=== PATIENT | male | born 1965 | race Caucasian/White ===

== ENCOUNTER 2022-04-25 05:12 | Observation (INO) ==
--- NOTE | 2022-04-05 11:59 | History & Physical Report ---
Date of Service April 05, 2022 date of surgery: 04/25/22 Procedure: Left Total Knee Arthroplasty Surgeon: Sung Bryan Assessment & Plan (1) Arthritis of knee, left: Plan: At this point time patient has failed conservative measures and like to seed with surgical invention. Plan will be left total knee arthroplasty. Plan on discharge home with home health physical therapy, placed on aspirin 81 mg twice a day for 1 month postop DVT prophylaxis. He otherwise has no other questions or concerns The risks and benefits have been discussed including, but not limited to, risk of infection, nerve injury, stiffness, loss of motion, failure to improve, etc. Reasonable outcomes and options of treatment were discussed. An explanation of appropriate alternatives to the procedure that may be advantageous were discussed and their risks and benefits, as well as the risks and benefits of not proceeding with treatment. I offered to answer any additional inquiries concerning the treatment involved. All the patient's questions were answered. The patient is agreeable, understanding of the treatment plan and alternatives, and wishes to proceed with the treatment plan. History of Present Illness Chief Complaint: left knee pain Primary Care Provider: NO PCP Mehran is a pleasant 56-year-old male who presented for preoperative evaluation prior to his left total knee replacement. He states that he has had pain in his knee for many years now which is gradually worsened, is now affecting his daily activities. He has tried prior corticosteroid injection as well as viscosupplementation without relief. States he has tried oral anti- inflammatories and Tylenol as well. Has complaints of pain and swelling and giving out. This point time is failed conservative measures and like to proceed with a left total knee replacement Review of Systems Review of Systems: All systems reviewed & are unremarkable except as noted in HPI & below Constitutional: no fever, no chills and no sweats Respiratory: no cough and no dyspnea Cardiovascular: no chest pain, no dyspnea and no orthopnea Gastrointestinal: no abdominal pain, no nausea and no vomiting Musculoskeletal: as per Subjective / HPI Physical Exam Constitutional: WD/WN, vitals as above no acute distress Respiratory: normal respiratory effort, lungs clear to auscultation no respiratory distress, no labored breathing and does not use accessory muscles Cardiovascular: RRR, no murmur, no edema Gastrointestinal (Abdomen): normal bowel sounds, soft, nontender, no hepatosplenomegaly Musculoskeletal: Knee: + knee abnormal to inspection (LEFT KNEE), + effusion (+1 effusion), + limited ROM of knee (ROM 0/3/110), + knee ROM with crepitation, + joint line tenderness (medial joint line) and + Moon's sign positive; no deformity, no skin erythema, no ecchymosis, no valgus laxity, no varus laxity, anterior drawer test negative, Elvia's sign negative and pivot shift test negative Results & Data Results & Data ([facility]) Diagnostic Findings Left Knee X-ray: left knee series confirm advanced degenerative changes to the left knee, greatest medial compartments and patellofemoral joint, showing joint space narrowing, osteophyte formation and subchondral sclerosis. no acute bony pathology noted.
--- NOTE | 2022-04-19 15:55 | PAT Medication Instructions ---
Medication Instructions Date of Service April 19, 2022 Home Medications empagliflozin 25 mg tablet (Jardiance) 25 mg PO QAM folic acid 1 mg tablet 1 mg PO BID hydrochlorothiazide 100 mg tablet 250 mg PO QAM losartan 50 mg tablet 50 mg PO QAM naproxen 500 mg tablet 500 mg PO BID PRN zinc 50 mg tablet 50 mg PO QAM STOP 3 days before surgery empagliflozin 25 mg tablet (Jardiance) 25 mg PO QAM ASK your surgeon for instructions naproxen 500 mg tablet 500 mg PO BID PRN DO NOT take the morning of surgery folic acid 1 mg tablet 1 mg PO BID hydrochlorothiazide 100 mg tablet 250 mg PO QAM losartan 50 mg tablet 50 mg PO QAM zinc 50 mg tablet 50 mg PO QAM Take evening before surgery folic acid 1 mg tablet 1 mg PO BID Other Notes NOTHING TO EAT OR DRINK AFTER MIDNIGHT. If you have any questions please call us at [phone] or [phone] or or [phone]
--- NOTE | 2022-04-21 12:53 | Anesthesiology Consultation ---
Date of Service April 21, 2022 Assessment & Plan (1) Encounter for pre-operative examination: - Outpatient joint pathway: Per OR booking comments, plan for outpatient joint program. Patient seen at [facility] 04/21. Patient is an acceptable candidate to proceed as possible outpatient joint pathway pending perioperative course. Surgeon's office arranging post-op home management. - Check BSG AM DOS - PCP office visit (03/15/22): "the patients most recent diagnostic testing was received with the patient and was acceptable. 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 his bp is up today and has been up for the last visits over 18 months. he claims that his bp at home is always normal.. BP 164/86.. he is cleared for this surgery.. it is noted that he has prediabetes and he admits to a heavy on the pasta diet. will start on a sglt inh after he calls with information regarding insurance coverage.. " Patient since started on Jardiance. HGBA1C 6.1% on 03/04/22. Pt states that surgery was originally scheduled with [facility] outpatient center but rescheduled at [facility] d/t BP control. Patient states he has since had BP meds adjusted and is well controlled/monitored closely at home. BP at [facility] 04/21/22 was 162/80 on initial check, 122/80 manual recheck. - COVID screening: Per assessment on 04/21: No known COVID-19 positive contacts. Travel screen negative. Patient had congestion/rhinorrhea 04/06/22 > resolved. Patient vaccinated. Covid test done at [facility] 04/21/22 d/t recent cold symptoms was negative. Chart Review Chart Review: Acceptable Risk for Surgery and Patient seen in Pre Admission Testing Teaching & Discussion Pre-Anesthesia Teaching/Discussion Notes: Instructed NPO after midnight before surgery,except medications with 15 cc of water. Medication instructions provided according to the [facility] guidelines. History Surgery Operation Date: 04/25/22 07:15 Proposed Procedures p Left Total Knee Arthroplasty - Sung Bryan DO Height/Weight Height: 5 ft 7 in Weight: 85.7 kg Allergies Allergy/AdvReac Type Severity Reaction Status Date / Time No Known Allergies Allergy Verified 04/19/22 15:02 Medications Home Medications Medication Instructions Recorded Confirmed Last Taken empagliflozin 25 mg tablet 25 mg PO QAM 04/19/22 04/19/22 Unknown (Jardiance) folic acid 1 mg tablet 1 mg PO BID 04/19/22 04/19/22 Unknown hydrochlorothiazide 100 mg tablet 250 mg PO QAM 04/19/22 04/19/22 Unknown losartan 50 mg tablet 50 mg PO QAM 04/19/22 04/19/22 Unknown naproxen 500 mg tablet 500 mg PO BID PRN Pain 04/19/22 04/19/22 Unknown zinc 50 mg tablet 50 mg PO QAM 04/19/22 04/19/22 Unknown Past Medical History Medical History (Updated 04/21/22 @ 14:47 by Nasreen Medina) Beta thalassemia, heterozygous Diabetes Erythrocytosis History of kidney stones HTN (hypertension) Exercise / Class Metabolic Activity II 4-5 Yardwork/Stairs/Walk up hill (one FS (no CP, no SOB)) Past Family History Family History Other No family history of adverse response to anesthesia Past Surgical History Surgical History History of lithotripsy History of surgery on arm Left x4 (from defect) Hx of arthroscopic knee surgery R/L Hx of arthroscopy of shoulder Hx of cataract extraction R/L Hx of colonoscopy Hx of eye surgery RK procedure Past Anesthesia History No Hx of Anesthesia Complications and No Family Hx of Anesthesia Complications History of PONV No Hx of PONV and No Hx of Motion Sickness Social History Smoking Status: Never smoker Do You Dip or Chew Tobacco: Yes (Advised none DOS) Hx Alcohol Use: Yes alcohol intake frequency: holidays/special occasions only Hx Substance Use: No substance use type: does not use Review of Systems Patient denies chest pain, shortness of breath, dyspnea on exertion, fever, chills, cough, wheezing, palpitations. Physical Exam Vital Signs VITALS BP 162/80 > 122/80 manual recheck P 73 TEMP 98.3 SP02 98%RA RESP 16 PHYSICAL Full cervical extension range of motion. Full TMJ range of motion. TMD 3.5 finger breaths Mallampati Score 3 Dentition: intact Lungs: clear throughout to auscultation Cardiac: regular rate and rhythm, no murmurs noted Spine: normal Carotid arteries: negative bruit Extremities: no edema Lab Results Anesthesia Preop Results Results Anesthesia Widget: Blood Type B Positive 04/21/22 Antibody Screen NEGATIVE 04/21/22 Testing Laboratory Results 03/04/22 WBC 6.23 H/H 14.0/45.5 PLATELETS 179 RBC morphology abnormal, 1+ anisocyte, 2+ microcyte, 1+ ovalocyte, WBC/platelet morphology normal SODIUM 140 POTASSIUM 3.7 CHLORIDE 107 CO2 29.0 BUN 20.0 CREATININE 0.87 GLUCOSE 163 HGBA1C 6.1% PT 12.0 PTT 34.1 INR 1.07 UA negative Electrocardiogram Date: 03/04/22 SR at 71bpm. "Normal ECG" Chest X-Ray Date: 04/21/22 FINDINGS: The lungs are clear. Cardiac silhouette is normal in size. No pleural effusions. No pneumothorax. Advanced degenerative changes within the shoulders. IMPRESSION: No acute process.
[2022-04-25] MEDS ORDERED: dexAMETHasone 4 MG TAB PO SCH (06:00)
[2022-04-25] MEDS ORDERED: LR 500ML BOLUS, THEN 15ML/HR IV SCH (06:00)
[2022-04-25] MEDS ORDERED: TRANEXAMIC ACID 1,000 MG **IV Intra-op IV SCH (06:00)
[2022-04-25] MEDS ORDERED: ROPIVACAINE 0.5% HCL/PF 150 MG, BUPIVACAINE 0.75% MPF 20 ML, EPINEPHrine 30MG/30ML (OR ... INSTIL SCH (06:00)
[2022-04-25] MEDS ORDERED: METOCLOPRAMIDE HCL 10 MG TABLET PO SCH (06:00)
[2022-04-25] MEDS ORDERED: FAMOTIDINE 20 MG TAB PO SCH (06:00)
[2022-04-25] MEDS ORDERED: ceFAZolin 2000MG 2,000 MG/15 ML SYR IV SCH (06:00)
[2022-04-25] MEDS ORDERED: ACETAMINOPHEN 500 MG TAB PO SCH ×2 (06:00→14:00)
[2022-04-25] MEDS ORDERED: TRANEXAMIC ACID 1,000 MG **IV Pre-op IV SCH (06:00)
[2022-04-25] MEDS ORDERED: GABAPENTIN 600 MG DOSE PO SCH (06:00)
[2022-04-25] MEDS ORDERED: CeleBREX 200 MG CAP PO SCH (06:00)
[2022-04-25] MEDS ORDERED: DEXAMETHASONE SOD INJ 4 MG/ML VIAL ONE (06:28)
[2022-04-25] MEDS ORDERED: BUPIVACAINE 0.25% PF 30 ML VIAL ONE (06:28)
[2022-04-25] MEDS ORDERED: MEPIVACAINE HCL 1.5% 30 ML VIAL ONE (06:28)
[2022-04-25] MEDS ORDERED: EPINEPHrine INJ 1 MG/ML AMP ONE (06:28)
[2022-04-25] MEDS ORDERED: LIDOCAINE 2% MPF LOCAL 5 ML VIAL INFIL ONE (06:43)
[2022-04-25] MEDS ORDERED: PROPOFOL IV EMULSION 10 MG/ML 20 ML VIAL IV ONE (06:43)
[2022-04-25] MEDS ORDERED: MIDAZOLAM HCL 1 MG/ML 2ML VIAL ONE (06:44)
[2022-04-25] MEDS ORDERED: ORTHO JOINT ANESTHETIC ONE (07:07)
[2022-04-25] MEDS ORDERED: ONDANSETRON INJ 2 MG/ML 2 ML VIAL IV PRN ×3 (07:12→18:40)
[2022-04-25] MEDS ORDERED: PROMETHAZINE HCL 6.25 MG in SODIUM CHLORIDE 0.9% 50 ML IV PRN (07:12)
[2022-04-25] MEDS ORDERED: ATROPINE SULFATE 0.1 MG/ML 10ML SYR IV PRN (07:12)
[2022-04-25] MEDS ORDERED: ePHEDrine sulfate 50 MG/ML AMP IV PRN (07:12)
[2022-04-25] MEDS ORDERED: fentaNYL citrate PF 100 MCG/2 ML VIAL IV PRN (07:12)
--- NOTE | 2022-04-25 07:26 | History & Physical Bridge Note ---
Date of Service April 25, 2022 History & Physical Bridge Note I have examined the patient, reviewed the History & Physical and in the interval since the performance of the History & Physical I have noted the following changes of clinical significance: no changes noted
[2022-04-25] MEDS ORDERED: KETAMINE 50 MG/5 ML SYRINGE ONE (07:47)
--- NOTE | 2022-04-25 08:40 | Operative Report ---
Post Operative Report Pre & Post Diagnosis Operation Date: 04/25/22 07:15 Pre-Op Diagnosis: Left Knee Osteoarthritis Post-Op Diagnosis: Left Knee Osteoarthritis I identified the patient and participated in the time-out.: Yes Procedure Operation Date: 04/25/22 07:15 Actual Procedures p Left Total Knee Arthroplasty(Left) utilizing Velarde & NephAtlas Spine journey 2 patient matched total knee arthroplasty size femur 5 tibia 5 poly 10 patella 32 oval- Sung Bryan DO Surgeon Sung Bryan DO Backshoe Person EVELYN Taylor Estimated Blood Loss 5 Findings Consistent with Post-Op Diagnosis Patient presents with severe end-stage tricompartmental degenerative joint disease left knee varus alignment 10 degree flexion contracture eburnated [id number] moderate osteophyte subchondral sclerosis marginal cystic changes as well as a moderate to large effusion Specimens Bone and cartilage Drains Medium bore Hemovac Anesthesia Type MAC Spinal Regional Complications none Disposition Accompanied Patient To Recovery: No Disposition: Recovery Room Indications Patient presents with severe end-stage DJD failed attempted conservative management occluding physical therapy anti-inflammatories relative rest activity modification corticosteroid injection viscosupplementation above intraoperative findings were noted Description of Procedure After proper prepping and draping of the left lower extremity anterior midline incision was made over the region of the extensor extensor mechanism after meticulous hemostasis was obtained and maintained in subcutaneous tissues a medial parapatellar incision was made The patella was subluxed lateralward the medial lateral gutter were cleaned from any hypertrophic synovitis and scar tissue of the distal femoral block was placed and the distal femoral osteotomy cut was made subsequently the chamfers anterior and posterior osteotomy cuts were made utilizing the 4-in-1 block the tibia was subsequently subluxed anteriorward medial and ateral meniscal remnants were excised in their entirety remnants of the anterior and posterior cruciate ligaments were excised in their entirety excellent exposure of the proximal tibia was obtained the tibial osteotomy guide was placed on the proximal tibial osteotomy cut was made once again the knee was irrigated with copious amounts of sterile saline solution the patella was subsequently everted lateralward thickened scar tissue around the patella was removed the patella was subsequently cut utilizing a freehand t echnique and was drilled prepared for final preparation and placement of patella socially flexion-extension gaps were checked and the equal and symmetric trials were placed to the appropriate femoral and tibial trials with poly-spacer being placed for equal flexion and extension gaps and full range of motion including extension to 0 and flexion to 140 the trial components after having been taken to recovery range of motion was subsequently removed meticulous hemostasis was obtained and maintained subsequently a knee block injection of joint cocktail including ropivacaine 0.5% 150 mg. Bupivacaine 0.5% epinephrine 1-200,030 mL's toradol 30 mg dexamethasone 4 mg ketamine 10 mg clonidine 100 micrograms normal saline solution 30 mg was infiltrated into the soft tissues of the posterior knee medial lateral gutters and periosteal synovium special attention was paid to protect neurovascular structures at all times subsequently trial components having been removed the knee was irrigated with sterile saline solution. debris was removed the proximal tibia was subsequently prepared and was made ready for the placement of the tibial component tibial component was also cemented and tamped into position the femoral component was subsequently placed and cemented in the position the patellar component was subsequently cemented in position because hemostasis once again obtained and maintained wound having been thoroughly irrigated with debridement and debridement lavage was performed as well as a medial parapatellar incision closed with #1 Vicryl in interrupted fashion subcutaneous was closed with #2 Vicryl skin was closed with skin clips. PA-C was necessary for prepping and drapping as well as wound closure of deep fascia Sub cutaneous tissue and skin and was necessary for the case. A sterile compressive dressing was placed patient was taken to recovery in stable condition of report dictated by Irvin I attest to the content of the Intraoperative Record and any orders documented therein. Any exceptions are noted below.Due to the complex nature of the procedure, the entire surgery was performed with the operational assistance of EVELYN Taylor. The oncology physician assistant, under direct supervision, was involved in the actual performance of all aspects of the surgical procedure including hemostasis, tissue retraction and incision, instrument management, patient positioning, and wound closure. I attest to the content of the Intraoperative Record and any orders documented therein. Any exceptions are noted below.
[2022-04-25] MEDS ORDERED: ONDANSETRON INJ 2 MG/ML 2 ML VIAL ONE (09:16)
[2022-04-25] MEDS ORDERED: oxyCODONE HCL IR 5 MG TAB (IMMEDIATE RELEASE) PO PRN ×2 (09:18→18:40)
[2022-04-25] MEDS ORDERED: HYDROmorphone INJ 1 MG/ML SYRINGE IV PRN ×2 (09:18→18:40)
[2022-04-25] MEDS ORDERED: METOCLOPRAMIDE HCL INJ 5 MG/ML 2 ML VIAL IV PRN ×2 (09:18→18:40)
[2022-04-25] MEDS ORDERED: NALOXONE HCL 0.4 MG/1 ML VIAL/CARP IV PRN ×2 (09:18→18:40)
[2022-04-25] MEDS ORDERED: SODIUM CHLORIDE 0.9% 1000ML 1,000 ML IV SCH ×2 (09:30→18:40)
--- NOTE | 2022-04-25 10:26 | Anesthesiology Progress Note ---
Date of Service April 25, 2022 Anesthesia Post Procedure Vital Signs Vital Signs: Temp Pulse Pulse Resp BP BP Pulse Ox 04/25/22 10:11 36.6 C 82 18 105/70 96 04/25/22 10:00 84 19 101/63 96 04/25/22 09:50 79 17 96/60 L 97 04/25/22 09:40 79 16 103/63 98 04/25/22 09:31 36.5 C 84 16 108/65 97 04/25/22 05:39 36.8 C 73 16 166/93 H 144/106 H 99 O2 Del Method O2 Flow Rate 04/25/22 10:11 Room Air 04/25/22 10:00 Oxymask 2 04/25/22 09:50 Oxymask 5 04/25/22 09:40 Oxymask 5 04/25/22 09:31 Oxymask 5 04/25/22 05:39 Room Air Transfer of Care Handoff Completed per policy Notes Mental Status: alert / awake / arousable Patient Amnestic to Procedure: Yes Nausea / Vomiting: adequately controlled Pain: adequately controlled Airway Patency, RR, SpO2: stable & adequate BP & HR: stable & adequate Hydration State: stable & adequate Neuraxial Anesthesia: was administered and sensory block is resolving Anesthetic Complications: no major complications apparent and Pt Satisfied with anesthetic care
--- NOTE | 2022-04-25 11:40 | XRay Report ---
TWO VIEWS LEFT KNEE CLINICAL HISTORY: Postoperative examination. FINDINGS: AP and crosstable lateral portable views of the left knee are obtained. A left knee arthrop lasty is in near anatomic alignment. There has been undersurface remodeling of the patella. No acute fracture is seen. There are expected postoperative changes around the knee including a surgical drain , soft tissue edema, and subcutaneous gas. IMPRESSION: Expected postoperative changes status post left knee arthroplasty. No acute fracture is s een. ACT 112: Negative or not required by law. Electronically signed by: Kiran Strong M.D. 04/25/2022 11:39 AM
[2022-04-25] MEDS ORDERED: bisacodyL 10 MG SUPP PR PRN (18:40)
[2022-04-25] MEDS ORDERED: PHARMACY GLYCEMIC MGMT CONSULT PRN (18:40)
[2022-04-25] MEDS ORDERED: diphenhydrAMINE Capsule 25 MG CAP PO PRN (18:40)
[2022-04-25] MEDS ORDERED: MAGNESIUM HYDROXIDE SUSP 30 ML UDC PO PRN (18:40)
[2022-04-25] MEDS: INSULIN ASPART PER UNIT CHARGE SC SCH (19:31)
[2022-04-25] MEDS: KETOROLAC TROMETHAMINE 15 MG/ML VIAL IV SCH (19:31)
[2022-04-25] MEDS ORDERED: LANTUS PER UNIT CHARGE SQ ONE (20:00)
[2022-04-25] MEDS: ACETAMINOPHEN 500 MG TAB PO SCH (20:41)
[2022-04-25] MEDS: ASPIRIN 81 MG ECTAB PO SCH (20:41)
[2022-04-25] MEDS: DOCUSATE SODIUM 100 MG CAP PO SCH (20:41)
[2022-04-25] MEDS: FOLIC ACID 1 MG TAB PO SCH (20:41)
[2022-04-25] MEDS: ceFAZolin 2000MG 2,000 MG/15 ML SYR IV SCH (20:41)
[2022-04-25] MEDS ORDERED: SENNA 8.6 MG TAB PO SCH (21:00)
[2022-04-26] MEDS: KETOROLAC TROMETHAMINE 15 MG/ML VIAL IV SCH ×3 (01:05→13:03)
[2022-04-26] MEDS: ACETAMINOPHEN 500 MG TAB PO SCH ×2 (05:58→13:10)
[2022-04-26] MEDS: ceFAZolin 2000MG 2,000 MG/15 ML SYR IV SCH (05:59)
[2022-04-26 06:49] LABS: Hematocrit (blood only) 36.6 % (42.0-52.0); Hemoglobin 11.6 g/dl (14.0-18.0); Mean Corpuscular Hgb Conc 31.7 g/dL (32.0-36.0); Mean Corpuscular Volume 63.2 fL (80.0-100.0); Mean Platelet Volume 10.8 fL (9.4-12.4); Platelet Count 189 K/uL (130-400); RDW Standard Deviation 35.1 fL (36.4-46.3); Red Blood Count 5.79 M/uL (4.70-6.10); White Blood Count 17.16 K/ul (4.8-10.8)
[2022-04-26 07:11] LABS: BUN Creatinine Ratio 27.3 (10-20); Calcium 8.6 mg/dl (8.5-10.1); Creatinine Clr Calc Pharmacy 75.9 ml/min; Est GFR (African American) 85.3 ml/min; Est GFR (Non-African American) 73.6 ml/min; Potassium 4.1 mmol/L (3.5-5.1)
--- NOTE | 2022-04-26 08:20 | Orthopedic Progress Note ---
Date of Service April 26, 2022 Assessment & Plan (1) Arthritis of knee, left: Plan: Postop day 1 status post left total knee arthroplasty PT/OT protocols. Weightbearing as tolerated on left lower extremity. Use of platform walker. DVT prophylaxis-aspirin p.o. twice daily, SCDs, WILMER hose. Pain management as written. Leukocytosis-patient currently asymptomatic. Likely secondary from preoperative steroids and/or surgical stress. DC planning-patient is planning for home health services upon discharge. We will see how he does with physical therapy and plan for discharge if he is progressing well. Admission and Anticipated Discharge Date Admission Date: April 25, 2022 Subjective Postop day 1 Patient sleeping upon arrival. Easily awoken. No complaints this morning. States that his drain had opened up in the middle the night causing a mass but otherwise a fairly uneventful night. He did have difficulty sleeping. Pain is currently controlled. Denies shortness of breath, chest pain, lightheadedness. Patient was initially supposed to be an outpatient total knee arthroplasty. Patient states that he is some weakness in the left upper extremity and also has an inability to fully extend and bend the elbow which was causing problems with his use of walker. A platform walker has been issued and patient will work with that today. Physical Exam Physical Exam: Dressings are clean, dry, and intact. Calves are soft nontender. Neurovascular intact. Toes are mobile. He has good dorsiflexion and plantarflexion of the left foot. Hemovac drainage was 150 cc from the previous shift. Results & Data Vital Signs (Past 12 Hours) Vital Signs Temp Pulse Pulse Resp BP BP Pulse Ox 04/26/22 07:26 36.6 C 64 18 104/67 99 04/26/22 02:50 36.8 C 66 16 134/71 97 04/25/22 20:47 36.6 C 85 18 114/64 96 O2 Del Method 04/26/22 07:26 Room Air 04/26/22 02:50 Room Air 04/25/22 20:47 Room Air Laboratory Results Laboratory Results WBC 17.16 K/ul (4.8-10.8) H 04/26/22 05:38 RBC 5.79 M/uL (4.70-6.10) 04/26/22 05:38 Hgb 11.6 g/dl (14.0-18.0) L 04/26/22 05:38 Hct 36.6 % (42.0-52.0) L 04/26/22 05:38 MCV 63.2 fL (80.0-100.0) L 04/26/22 05:38 MCH 20.0 pg (25.0-34.0) L 04/26/22 05:38 MCHC 31.7 g/dL (32.0-36.0) L 04/26/22 05:38 RDW Std Deviation 35.1 fL (36.4-46.3) L 04/26/22 05:38 RDW Coeff of Oz 16.0 % (11.5-14.5) H 04/26/22 05:38 Plt Count 189 K/uL (130-400) 04/26/22 05:38 MPV 10.8 fL (9.4-12.4) 04/26/22 05:38 Sodium 137 mmol/L (136-145) 04/26/22 05:38 Potassium 4.1 mmol/L (3.5-5.1) 04/26/22 05:38 Chloride 104 mmol/L (98-107) 04/26/22 05:38 Carbon Dioxide 26 mmol/L (21-32) 04/26/22 05:38 Anion Gap 7 (3-11) 04/26/22 05:38 BUN 30 mg/dl (6-23) H 04/26/22 05:38 Creatinine 1.10 mg/dl (0.6-1.4) 04/26/22 05:38 Est Cr Clr Drug Dosing 75.9 ml/min 04/26/22 05:38 Est GFR ( Amer) 85.3 ml/min 04/26/22 05:38 Est GFR (Non-Af Amer) 73.6 ml/min 04/26/22 05:38 BUN/Creatinine Ratio 27.3 (10-20) H 04/26/22 05:38 Glucose 151 mg/dl (70-99(Fasting)) H 04/26/22 05:38 POC Glucose 141 mg/dl (70-99) H 04/26/22 08:04 Calcium 8.6 mg/dl (8.5-10.1) 04/26/22 05:38 Impressions Knee X-Ray 04/25/22 09:19 TWO VIEWS LEFT KNEE CLINICAL HISTORY: Postoperative examination. FINDINGS: AP and crosstable lateral portable views of the left knee are obtained. A left knee arthroplasty is in near anatomic alignment. There has been undersurface remodeling of the patella. No acute fracture is seen. There are expected postoperative changes around the knee including a surgical drain, soft tissue edema, and subcutaneous gas. IMPRESSION: Expected postoperative changes status post left knee arthroplasty. No acute fracture is seen. ACT 112: Negative or not required by law. Electronically signed by: Kiran Strong M.D. 04/25/2022 11:39 AM
[2022-04-26] MEDS ORDERED: hydroCHLOROthiazide 25 MG TAB PO SCH (09:00)
[2022-04-26] MEDS ORDERED: NON-FORMULARY MEDICATION (Zinc 50 mg Tablet) PO SCH (09:00)
[2022-04-26] MEDS ORDERED: MULTIVITAMIN TAB PO SCH (09:00)
[2022-04-26] MEDS ORDERED: LOSARTAN POTASSIUM 50 MG TAB PO SCH (09:00)
[2022-04-26] MEDS: FOLIC ACID 1 MG TAB PO SCH (09:22)
[2022-04-26] MEDS: ASPIRIN 81 MG ECTAB PO SCH (09:22)
[2022-04-26] MEDS: DOCUSATE SODIUM 100 MG CAP PO SCH (09:22)
[2022-04-26] MEDS: INSULIN ASPART PER UNIT CHARGE SC SCH ×2 (09:34→12:48)
[2022-04-26 12:11] LABS: Estimated Average Glucose 143 mg/dl; Hemoglobin A1C 6.6 % (4.5-5.6)
[2022-04-26] MEDS ORDERED: INSULIN ASPART PER UNIT CHARGE SC SCH (16:30)
--- NOTE | 2022-04-26 19:38 | Discharge Summary ---
Date of Service date of discharge: April 26, 2022 date of admission: 04/25/22 Admission HPI Per Admitting Provider Mehran is a pleasant 56-year-old male who presented for preoperative evaluation prior to his left total knee replacement. He states that he has had pain in his knee for many years now which is gradually worsened, is now affecting his daily activities. He has tried prior corticosteroid injection as well as viscosupplementation without relief. States he has tried oral anti- inflammatories and Tylenol as well. Has complaints of pain and swelling and giving out. This point time is failed conservative measures and like to proceed with a left total knee replacement Principal Diagnosis left knee arthritis Discharge Exam Musculoskeletal left knee: NVDI, calf SNT, negative aashish sign. DP palpable, able to wiggle toes/ankle movement without difficulty. HIGINIO dressing clean dry and intact. expected post-operative bruising noted. Discharge Data Allergies Allergy/AdvReac Type Severity Reaction Status Date / Time No Known Allergies Allergy Verified 04/25/22 05:37 Procedures Performed Operation Date: 04/25/22 07:15 Actual Procedures p Left Total Knee Arthroplasty(Left) - Sung Bryan DO Ordered Studies 04/25/22 05:00 US - OR guided needle placemen Routine Hospital Course (1) Arthritis of knee, left: Postop day 1 status post left total knee arthroplasty PT/OT protocols. Weightbearing as tolerated on left lower extremity. Use of platform walker. DVT prophylaxis-aspirin p.o. twice daily, WILMER Duong. Pain management as written. Leukocytosis-patient currently asymptomatic. Likely secondary from preoperative steroids and/or surgical stress. DC planning-patient is planning for home health services upon discharge. We will see how he does with physical therapy and plan for discharge if he is progressing well. Total Time Total Time Spent Total Time Spent (In Minutes): 20 Discharge Plan Discharge Items Patient Disposition: Home - Home Health Services Reason For Visit: POST OP TKA Discharge Diagnosis: left total knee replacement Activity: Per Instructions section Weightbearing: Left weightbearing Weightbearing Comment: WBAT with walker Non-emergency contact: Surgeon Call non-emergency contact if: you have any medication questions, your temperature is above 101, your wound has increased redness, your wound has increased drainage and your wound pain has increased Follow-up/Referrals: [facility] [Outside] (as per surgeon's office ) Vadim Garcia [Primary Care Provider] - Addtl Attending Provider Instructions: ACTIVITY RECOMMENDATIONS: SELF CARE INSTRUCTIONS AFTER TOTAL KNEE REPLACEMENT A. You may need to continue a physical therapy program after discharge from the hospital. There are several options available to you. Your doctor will assist you in selecting the best one for you. 1. An out-patient facility 2 to 3 times a week for therapy or home therapy. 2. Continue working on all exercises taught to you in the hospital. Your goals should be to increase bending of your knee to 90 degrees and beyond and to fully straighten your knee. B. You may progress at your own pace from walking with a walker or crutches to a cane; then to no assistive devices. C. Make walking a part of your daily routine. Be up as much as comfortable with rest periods throughout the day. Rest with leg elevation is very important. Use the ice wrap frequently for the first 3-4 weeks. D. There are no restrictions on activities. You may ride in a car, shop, participate in senior storage administrator and all social activities. E. Wear the long elastic stockings (WILMER hose) 20 hours a day for 2 weeks after surgery. They can be removed several times a day for laundering and for a bath. F. You may shower, no tub baths until cleared by your doctor. SPECIAL CARE INSTRUCTIONS: VERY IMPORTANT TO READ AND REVIEW A. There are a few signs you need to watch for after you are home. Call [facility] if you notice any of the followin. Increased severe knee pain. Some pain is expected especially when you exercise. 2. Increased swelling in your leg or knee; pain or swelling of the calf muscle in either lower leg. 3. Any fluid drainage from the incision. 4. Shortness of breath or chest pain. B. Please call [facility] at if you have any concerns or questions about your operation or recovery. The doctor or his nurse will return your call promptly. C. You must take antibiotics before dental work, bladder, bowel or other surgery. Your doctor will provide you with a permanent care to carry describing this precaution. IMPORTANT: * REMEMBER TO TAKE ASPIRIN, 81 MG, TWICE DAILY FOR 4 WEEKS UNLESS OTHERWISE DIRECTED. THIS IS YOUR BLOOD THINNER. * HIGH RISK PATIENTS MAY BE PRESCRIBED A STRONGER BLOOD THINNER. THIS WILL BE PROVIDED AT DISCHARGE. * CALL IF INCREASED PAIN, REDNESS, DRAINAGE OR FEVER GREATER THAT 101. * WEAR WILMER HOSE 20 HOURS PER DAY FOR 2 WEEKS. * DRESSING INSTRUCTIONS * HIGINIO Dressing- This is a large suction dressing covering your incision. This will help pull any excess drainage from the wound and allow your incision to heal properly. You may shower with this if you can keep the unit outside of the shower. If any bleeding or leakage is noted please call your doctor's office. This will remain on your incision for 7 days and then should be removed. This can be done yourself or by the home nursing staff if applicable. The entire unit is disposable once removed. Once removed, keep incision clean and dry. If redness or drainage is noted, please call your surgeon. ONCE HIGINIO IS REMOVED, FOLLOW THESE INSTRUCTIONS: DERMABOND Prineo- This is a mesh tape dressing that is covered with glue. It should remain in place until the incision is properly healed, usually 10-14 days. This dressing is designed to naturally slough off. You may trim the excess mesh tape as it peels off. Incision may be briefly wet in a shower. Dry immediately by blotting with a clean, dry towel. Do not bath or swim until instructed by your doctor. Do not scratch, rub, or pick at the dressing. Do not apply any topical ointments or lotions until dressing is completely removed and/or instructed by your doctor. There may be a small piece of suture material at one end of your incision. Do not pull or trim this. If it is bothersome or catching on clothing, you may cover it with a band-aid. IF INCISION IS LEAKING THROUGH DRESSING, CALL THE OFFICE . FOLLOW UP VISIT: If appointment is not already scheduled: Please call [facility] to make a follow-up appointment for 2 weeks after your surgery at . Pending Studies at Discharge: No Stand-Alone Forms: Anesthesia/Sedation, Adult, [facility] Medications and DC Order Prescriptions: New acetaminophen [Tylenol Extra Strength] 500 mg Tablet 1,000 mg PO Q8 21 Days Qty: 126 0RF oxycodone 5 mg Tablet 5 - 10 mg PO Q6H PRN (Reason: pain) Qty: 30 0RF clindamycin HCl 300 mg capsule 300 mg PO TID 7 Days Qty: 21 0RF aspirin 81 mg tablet,delayed release (DR/EC) 81 mg PO BID 30 Days Qty: 60 0RF celecoxib [Celebrex] 200 mg capsule 200 mg PO BID 30 Days Qty: 60 0RF Continued losartan 50 mg Tablet 50 mg PO QAM hydrochlorothiazide 100 mg Tablet 25 mg PO QAM folic acid 1 mg Tablet 1 mg PO BID zinc 50 mg Tablet 50 mg PO QAM Jardiance 25 mg Tablet 25 mg PO QAM Discontinued naproxen 500 mg Tablet 500 mg PO BID PRN (Reason: Pain) Krames/Other Patient Handouts: DVT Post Op Prevention Admission Data Admit Date/Time: 04/25/22 15:33 Attending Provider: Sung Bryan Admit Provider: Sung Bryan Primary Care Provider: Vadim Garcia Other Interventions: Discharge Summary Assessment (RN) Last Done: 04/26/22 13:03
[2022-04-26] MEDS ORDERED: CeleBREX 200 MG CAP PO SCH (21:00)
== END 2022-04-26 13:45 | disposition home health service (06) ==
LOC: ASU 05:12 → 3E 05:12